=== PATIENT | male | born 1960 | race Hispanic/Latino ===

== ENCOUNTER → 2018-05-26 10:33 | Outpatient (CLI) | payer OTHER, SELFPAY | DX: Z23 Encounter for immunization (principal) ==

== ENCOUNTER 2018-08-23 21:50 | Emergency (ER) | payer OTHER, SELFPAY ==
[2018-08-23 21:54] VITALS: BP 158/86; PULSE 99; RESP 14; TEMP 36.8; O2SAT 97; BMI 28.1
--- NOTE | 2018-08-23 22:06 | ED_ITS ---
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 This happened several hours ago. Pain has been worsening since then. He has been ambulatory. Has not taken anything for this prior to arrival Related Data Allergies Allergy/AdvReac Type Severity Reaction Status Date / Time No Known Drug Allergies Allergy Verified 08/23/18 21:57 Review of Systems Constitutional Denies fever(s) Musculoskeletal Comments: Left foot pain Integumentary/Breasts Denies lesions and Denies rash Neurologic Comments: No tingling left foot Hematologic/Lymphatic Comments: Not on anticoagulation PFSH Medical History Healthy adult (Acute) Surgical History No pertinent past surgical history (Acute) Social History Smoking Status: Never smoker Exam Initial Vital Signs Initial Vital Signs: Vital Signs Temperature 98.2 F 08/23/18 21:54 Pulse Rate 99 H 08/23/18 21:54 Respiratory Rate 14 08/23/18 21:54 Blood Pressure 158/86 H 08/23/18 21:54 Pulse Oximetry 97 08/23/18 21:54 Const General: cooperative, healthy appearing, comfortable, well developed, well groomed and No acute distress Orientation: alert, awake and oriented x3 HENMT Head: normal to inspection and normocephalic Resp Effort & Inspection: normal respiratory effort Cardio Rate: regular rate Pulses: dorsalis pedis present on the left Skin Rashes: no rashes Wounds: no wounds Neuro Sensory Exam: no sensory deficits noted Extrem Other: Tender to palpation dorsum left foot medial aspect Psych Appearance: grossly normal and well kempt Course Vital Signs - 8 hr 08/23/18 21:54 Temperature 98.2 F Pulse Rate 99 H Respiratory Rate 14 Blood Pressure 158/86 H Pulse Oximetry 97 MDM - Extremity Injury (Lower) MDM Narrative Medical decision making narrative: Patient is neurovascular intact. He is ambulatory. No skin changes. Have low suspicion for fracture. Will hold on x- ray for now. Suspect contusion. Low suspicion for Lisfranc injury patient is given return precautions. He is given care instructions. He expressed understanding and agreement with plan Discharge Plan Departure Patient Disposition: Home Clinical Impression: Contusion of foot, left Instructions: DI for Contusion, How To Perform RICE (Rest, Ice, Compress, Elevate) Activity Restrictions/Additional Instructions: No limitations on your activity. Recommend that for the remainder of this evening you keep your foot elevated. He can take anti-inflammatories such as Motrin or Naprosyn. Return to the emergency department for any new or worsening symptoms
[2018-08-23] MEDS: IBUPROFEN 400 MG TABLET 800 MG PO (22:37)
== END 2018-08-23 22:44 | disposition home or self-care (01) ==
PROVIDERS: Emergency Provider Emergency Medicine
DX: S90.32XA Contusion of left foot, initial encounter (principal); Y93.E5 Activity, floor mopping and cleaning; W22.8XXA Striking against or struck by other objects, initial encounter; Y99.0 Civilian activity done for income or pay
CPT/HCPCS: 99282; 99283

== ENCOUNTER → 2019-05-31 17:51 | Outpatient (CLI) | payer OTHER, SELFPAY | DX: Z23 Encounter for immunization (principal) | CPT/HCPCS: 90471; 90686 ==

== ENCOUNTER → 2020-08-11 15:29 | Outpatient (CLI) | payer OTHER, SELFPAY ==
--- NOTE | 2020-08-11 | DI.US.S_ITS ---
PROCEDURE: US RENAL COMPLETE INDICATIONS: PROTEINURIA TECHNIQUE: Real-time scanning was performed of the kidneys and bladder, with image documentation. COMPARISON: None. FINDINGS: Kidneys: Kidneys are normal in size. Right kidney measures 10.3 cm long; left kidney measures 9.9 cm long. Right renal cortical thickness is 1.7 cm; left renal cortical thickness is 1.8 cm. Renal cortical echotexture is normal. No hydronephrosis. No suspicious solid mass lesions. Small apparent nonobstructing stones can be seen involving the left kidney. At the inferior pole of the left kidney, there is a 1.1 cm simple cyst. Bladder: Pre-void bladder volume is 102 mL. Post-void residual is 1 mL. Pre-void images demonstrate no intraluminal masses or stones. However, there is wall thickening seen of the urinary bladder, measuring up to 5 mm. On pre-void images, both ureteral jets are noted with color Doppler interrogation. (Of note, ureteral jets may not be detectable in up to 25% of cases due to insufficient differences in specific gravity between ureteral and bladder urine). Miscellaneous: No free pelvic fluid. IMPRESSION: Mild wall thickening is seen of the urinary bladder. Please correlate with cystitis. Apparent small nonobstructing stones are seen involving the left kidney. Dictated by: Ashutosh Gipson M.D. on 08/11/2020 at 15:13 Approved by: Ashutosh Gipson M.D. on 08/11/2020 at 15:15
== END ==
PROVIDERS: PCP Family Medicine; Referring Provider Family Medicine; Visit Provider Family Medicine
DX: R80.9 Proteinuria, unspecified (principal); N20.0 Calculus of kidney; N28.1 Cyst of kidney, acquired
CPT/HCPCS: 76770

== ENCOUNTER → 2020-09-12 15:54 | Outpatient (CLI) | payer OTHER, SELFPAY ==
[2020-09-12] MEDS: COVID-19 VACC(MODERNA-1)/PF 100 MCG/0.5 ML VIAL IM (16:16)
== END ==
PROVIDERS: PCP Family Medicine; Visit Provider Internal Medicine
DX: Z23 Encounter for immunization (principal)
CPT/HCPCS: 0011A; 91301

== ENCOUNTER → 2020-10-08 16:07 | Outpatient (CLI) | payer OTHER, SELFPAY ==
[2020-10-08] MEDS: COVID-19 VACC #2, MRNA(MOD) 100 MCG/0.5 ML VIAL IM (16:13)
== END ==
PROVIDERS: PCP Family Medicine; Visit Provider Internal Medicine
DX: Z23 Encounter for immunization (principal)
CPT/HCPCS: 0012A; 91301

== ENCOUNTER → 2021-06-11 | Outpatient (CLI) | payer OTHER, SELFPAY | PROVIDERS: PCP Family Medicine; Referring Provider Internal Medicine; Visit Provider Internal Medicine | DX: Z23 Encounter for immunization (principal) | CPT/HCPCS: 90471; 90686 ==

== ENCOUNTER → 2024-01-17 10:51 | Outpatient (CLI) | payer OTHER, SELFPAY | PROVIDERS: PCP Physician Assistant; Referring Provider Internal Medicine; Visit Provider Internal Medicine | DX: R06.02 Shortness of breath (principal); J98.4 Other disorders of lung | CPT/HCPCS: 94060; 94726; 94729 ==

== ENCOUNTER 2024-05-03 11:56 | Inpatient (IN) | payer OTHER, SELFPAY ==
[2024-05-03] VITALS (17 sets, daily range): BP systolic 134–158; BP diastolic 74–82; PULSE 62–74; RESP 20–35; TEMP 36.7; O2SAT 79–97; BMI 31.1
--- NOTE | 2024-05-03 12:07 | EKG_ITS ---
[address] [address] Test Date: 2024-05-03 Pat Name: Pj Miller Department: Room: Gender: Male [employer]: ANENTTE : 1960 Requested By: Order Number: [id number] Reading MD: Feliciano Keyes Measurements Intervals Penelope Rate: 67 P: 35 MI: 152 QRS: 72 QRSD: 84 T: 39 QT: 418 QTc: 441 Interpretive Statements Normal sinus rhythm Electronically Signed On 05-03-2024 15:19:20 PDT by Feliciano Keyes
--- NOTE | 2024-05-03 12:07 | ED_ITS ---
HPI - SOB/Dyspnea General Chief Complaint: Shortness of Breath/Dyspnea Stated Complaint: per pt low oxygen Time Seen by Provider: 05/03/24 12:00 Source: patient Mode of arrival: Ambulatory Limitations: no limitations History of Present Illness HPI Narrative: 63-year-old male with history of hypertension, gout, diabetes presents by private vehicle for shortness of breath, central chest pain, and low reported oxygen saturations on room air at his PCP's office. Patient states that in September of 2023 he had pneumonia, and never truly recovered. He has seen pulmonology for his shortness of breath, he was trialed on nebulizers without significant improvement. Patient states that 2 months ago he was hospitalized at [facility] and underwent coronary angiogram, which showed 70% stenosis of one of his coronaries, however cardiology opted for medical management at that time. Patient found to be 79% on room air and placed on nasal cannula. Related Data Home Medications Medication Instructions Recorded Confirmed albuterol sulfate 90 mcg/actuation 2 inh inhalation Q4H PRN 11/29/23 01/17/24 breath activated powder inhaler allopurinol 300 mg tablet 300 mg PO DAILY 11/29/23 01/17/24 amlodipine 10 mg tablet 10 mg PO DAILY 11/29/23 01/17/24 atenolol 50 mg tablet 50 mg PO DAILY 11/29/23 01/17/24 carvedilol 12.5 mg tablet 12.5 mg PO BID 11/29/23 01/17/24 losartan 100 mg tablet 100 mg PO DAILY 11/29/23 01/17/24 metformin 1,000 mg tablet 1,000 mg PO BIDWMEAL 11/29/23 01/17/24 simvastatin 20 mg tablet 20 mg PO DAILY 11/29/23 01/17/24 tamsulosin 0.4 mg capsule 0.4 mg PO DAILY 11/29/23 01/17/24 Previous Rx's Medication Instructions Recorded fluticasone 250 mcg-salmeterol 50 1 inh inhalation BID #60 ea 03/22/24 mcg/dose blistr powdr for inhalation Allergies Allergy/AdvReac Type Severity Reaction Status Date / Time No Known Drug Allergies Allergy Verified 05/03/24 12:04 Patient History Medical History (Updated 05/03/24 @ 14:37 by Muriel Dodson MD) Obstructive airway disease HLD (hyperlipidemia) HTN (hypertension) Coronary artery disease Healthy adult Surgical History No pertinent past surgical history Social History Smoking Status: Never smoker Smoking Status: Never smoker alcohol intake frequency: holidays/special occasions only Substance Use Type: does not use Exam Initial Vital Signs Initial Vital Signs: Vital Signs Temperature 98.0 F 05/03/24 11:58 Pulse Rate 70 05/03/24 11:58 Respiratory Rate 26 H 05/03/24 11:58 Blood Pressure 158/76 H 05/03/24 11:58 Pulse Oximetry 79 L 05/03/24 11:58 Oxygen Delivery Method Room Air 05/03/24 11:58 Const: Awake, alert, nontoxic appearing Cardiac: regular rate, regular rhythm RESP: unlabored, crackles LLL, no wheezing GI: Soft, nontender, nondistended, no rebound, no guarding MSK: no edema, full range of motion, pulses equal Skin: Warm, Dry, intact, no rashes Neuro: AO x3, CN II-XII grossly intact, moves all extremities Course Orders Ordered: ED Orders 05/03/24 12:05 Chest [XR chest 1V] Stat EKG-12 Lead Stat 05/03/24 12:09 BNP [NT-proBNP (BNP-Adult 18+)] Stat CBC Auto Diff [Complete Blood Count AUTO DIFF] Stat CMP [Comprehensive Metabolic Panel] Stat PT [Prothrombin Time INR] Stat Respiratory Panel (Film Array) Stat Troponin & CK Cardiac Panel Stat 05/03/24 12:29 Blood Culture Stat Discontinued Medications Furosemide (Furosemide 40 Mg/4 Ml Vial) 40 mg IV NOW ONE Stop: 05/03/24 14:03 Last Admin: 05/03/24 14:20 Dose: 40 mg Ceftriaxone Sodium 2,000 mg/ (Sodium Chloride) 100 mls @ 200 mls/hr IV NOW ONE Stop: 05/03/24 12:21 Last Infusion: 05/03/24 13:20 Dose: Infused Documented By: Admin: 05/03/24 12:41 Dose: 200 mls/hr Documented By: RAMÓN Azithromycin 500 mg/ Dextrose 250 mls @ 250 mls/hr IV NOW ONE Stop: 05/03/24 12:21 Last Admin: 05/03/24 13:20 Dose: 250 mls/hr Documented By: BENI Sodium Chloride (Normal Saline 0.9%) 1,000 mls @ 1,000 mls/hr IV BOLUS ONE Stop: 05/03/24 13:24 Last Infusion: 05/03/24 13:49 Dose: Infused Documented By: Admin: 05/03/24 12:41 Dose: 1,000 mls/hr Documented By: RAMÓN Vital Signs Vital signs: Vital Signs - 8 hr 05/03/24 11:58 05/03/24 12:03 05/03/24 12:15 Temperature 98.0 F Pulse Rate 70 74 67 Respiratory Rate 26 H 30 H 29 H Blood Pressure 158/76 H Pulse Oximetry 79 L 87 L 93 Oxygen Delivery Method Room Air Nasal Cannula Oxygen Flow Rate 3 05/03/24 12:30 05/03/24 12:30 05/03/24 12:45 Temperature Pulse Rate 66 66 Respiratory Rate 24 30 H Blood Pressure 139/74 Pulse Oximetry 94 95 Oxygen Delivery Method Nasal Cannula Nasal Cannula Oxygen Flow Rate 3 3 05/03/24 13:00 05/03/24 13:00 05/03/24 13:15 Temperature Pulse Rate 64 66 Respiratory Rate 30 H 35 H Blood Pressure 144/77 H Pulse Oximetry 93 94 Oxygen Delivery Method Nasal Cannula Nasal Cannula Oxygen Flow Rate 3 3 05/03/24 13:30 05/03/24 13:30 05/03/24 13:45 Temperature Pulse Rate 65 67 Respiratory Rate 24 29 H Blood Pressure 146/76 H Pulse Oximetry 91 91 Oxygen Delivery Method Nasal Cannula Nasal Cannula Oxygen Flow Rate 3 3 MDM - SOB/Dyspnea Lab Data 05/03/24 12:09 05/03/24 12:09 Labs: Lab Results 05/03/24 Range/Units 12:09 WBC 6.4 (4.5-11.0) X10^3/uL RBC 5.98 H (4.5-5.9) X10^6/uL Hgb 12.9 L (13.5-17.5) g/dL Hct 42.1 (41-53) % MCV 70.5 L (80-100) fL MCH 21.5 L (26-34) PG MCHC 30.6 (30-36) % RDW 18.6 H (11.6-14.8) % Plt Count 249 (150-400) X10^3/uL Neut % (Auto) 73.1 (50-75) % Lymph % (Auto) 16.8 L (25-40) % Ogle % (Auto) 6.0 (3-14) % Eos % (Auto) 3.4 (2-4) % Baso % (Auto) 0.7 (0-2) % Neut # (Auto) 4700 (8527-4412) /uL Lymph # (Auto) 1100 (2205-6258) /uL Ogle # (Auto) 400 (0-900) /uL Eos # (Auto) 200 (0-450) /uL Baso # (Auto) 0 (0-100) /uL PT 9.8 (9.4-12.5) SECONDS INR 0.9 (0.9-1.3) Sodium 141 (137-145) mmol/L Potassium 4.7 (3.4-5.1) mmol/L Chloride 112 H (98-107) mmol/L Carbon Dioxide 19 L (22-32) mmol/L BUN 38 H (9-20) mg/dL Creatinine 2.22 H (0.66-1.25) mg/dL Estimated GFR 32 L (>60) mL/min BUN/Creatinine Ratio 17.1 (6-22) Glucose 112 H (80-110) mg/dL Calcium 8.8 (8.4-10.2) mg/dL Total Bilirubin 0.6 (0.2-1.3) mg/dL AST 25 (17-59) IU/L ALT 21 (<50) IU/L Alkaline Phosphatase 69 (38-126) U/L Total Creatine Kinase 138 (55-170) U/L Troponin I < 0.012 (0.01-0.034) ng/mL NT-Pro-B Natriuret Pep 290 H (<125) pg/mL Total Protein 7.3 (6.3-8.2) g/dL Albumin 4.3 (3.5-5.0) g/dL Globulin 3.0 (1.7-4.1) g/dL Albumin/Globulin Ratio 1.4 (1.0-2.8) Chlamy pneumoniae PCR Not detected (Not Detect) Adenovirus (PCR) Not detected (Not Detect) B.parapertussis DNA PCR Not detected (Not Detecte) Coronavirus OC43 (PCR) Not detected (Not Detect) Coronavirus HKU1 (PCR) Not detected (Not Detect) Coronavirus 229E (PCR) Not detected (Not Detect) SARS-CoV-2 (PCR) Not detected (Not Detecte) Coronavirus NL63 (PCR) Not detected (Not Detect) Human Metapneumovir PCR Not detected (Not Detect) Influenza Type A (PCR) Not detected (Not Detect) Influenza Type B (PCR) Not detected (Not Detect) M. pneumoniae (PCR) Not detected (Not Detect) Parainfluenza 1 (PCR) Not detected (Not Detect) Parainfluenza 2 (PCR) Not detected (Not Detect) Parainfluenza 3 (PCR) Not detected (Not Detect) Parainfluenza 4 (PCR) Not detected (Not Detect) RSV (PCR) Not detected (Not Detect) Entero/Rhino (PCR) Not detected (Not Detect) Imaging Data Chest x-ray: Radiologist's Impression: PROCEDURE: XR CHEST 1V INDICATIONS: DYSPNEA, HYPOXIA TECHNIQUE: One view of the chest was acquired. COMPARISON: [facility], , CT THORAX W/O CONTRAST, 12/15/2023, 11:02. FINDINGS: Surgical changes and devices: None. Lungs and pleura: Trace bilateral pleural effusions. Patchy opacities in the right lung base. Mediastinum: Mediastinal contours appear normal. Heart size is normal. Bones and chest wall: No suspicious bony lesions. Overlying soft tissues appear unremarkable. IMPRESSION: Trace bilateral pleural effusions. Right basilar atelectasis or pneumonia. Dictated by: Gin Rodrigues MD, PhD on 05/03/2024 at 12:36 Approved by: Gin Rodrigues MD, PhD on 05/03/2024 at 12:37 ECG Data Interpretation: Normal sinus rhythm at 67 beats per minute. Normal RI, no ST T wave changes, no STEMI MDM Narrative Medical decision making narrative: Nontoxic patient with hypoxia, chest pain, shortness of breath. 79% on RA, patient does not wear O2 at baseline. Placed on NC on arrival. Suspect pneumonia based on pulmonary exam. Blood cultures ordered, chest x-ray ordered. Patient reports recent hospitalization at [facility] for coronary disease evaluation. He states that his heart catheterization showed no significant blockages, however review of records shows 70% stenosis. Laboratory work shows WBC count 6.4, hemoglobin 12.9, platelets 249, sodium 141, potassium 4.7, creatinine 2.22, GFR 32. 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 CXR shows R sided pneumonia. Rocephin, azithromycin ordered. Discussed case with hospitalist, who requested Cardiology be consulted to see if transfer is indicated due to patient's chest pain. Discussed case with Dr. Bell of [facility], who stated that at this time there was no indication for emergent transfer and patient could be managed medically with diuresis. Discharge Plan Departure Patient Disposition: Admitted as Observation Clinical Impression: Acute hypoxemic respiratory failure Admit Date/Time: 05/03/24 14:20 Admit Provider: Feliciano Keyes
[2024-05-03 12:20] LABS: Add Manual Diff / Slide Review NO; Basophils Absolute Auto 0 /uL (0-100); Basophils Percent Auto 0.7 % (0-2); Eosinophils Absolute Auto 200 /uL (0-450); Eosinophils Percent Auto 3.4 % (2-4); Hematocrit 42.1 % (41-53); Hemoglobin 12.9 g/dL (13.5-17.5); Lymphocytes Absolute Auto 1100 /uL (1100-4500); Lymphocytes Percent Auto 16.8 % (25-40); Mean Corpuscular HGB Conc 30.6 % (30-36); Mean Corpuscular Hemoglobin 21.5 PG (26-34); Mean Corpuscular Volume 70.5 fL (80-100); Monocytes Absolute Auto 400 /uL (0-900); Neutrophils Absolute Auto 4700 /uL (1500-7000); Neutrophils Percent Auto 73.1 % (50-75); Platelet Count 249 X10^3/uL (150-400); Red Blood Cell Count 5.98 X10^6/uL (4.5-5.9); Red Cell Distribution Width 18.6 % (11.6-14.8); White Blood Cell Count 6.4 X10^3/uL (4.5-11.0)
[2024-05-03 12:27] LABS: INR 0.9 (0.9-1.3); Prothrombin Time 9.8 SECONDS (9.4-12.5)
[2024-05-03 12:35] LABS: Alanine Aminotransferase 21 IU/L (<50); Albumin 4.3 g/dL (3.5-5.0); Albumin Globulin Ratio 1.4 (1.0-2.8); Alkaline Phosphatase 69 U/L (38-126); Aspartate Aminotransferase 25 IU/L (17-59); BUN Creatinine Ratio 17.1 (6-22); Bilirubin Total 0.6 mg/dL (0.2-1.3); Blood Urea Nitrogen 38 mg/dL (9-20); Calcium 8.8 mg/dL (8.4-10.2); Carbon Dioxide 19 mmol/L (22-32); Chloride 112 mmol/L (98-107); Creatine Kinase 138 U/L (55-170); Estimated Glomerular Filt Rate 32 mL/min (>60); Glucose 112 mg/dL (80-110); HEMOLYSIS < 15 (0-50); Potassium 4.7 mmol/L (3.4-5.1); Sodium 141 mmol/L (137-145); Total Protein 7.3 g/dL (6.3-8.2)
[2024-05-03] MEDS: cefTRIAXone 2,000 MG in SODIUM CHLORIDE 0.9% 100 ML 200 MG IV (12:41)
[2024-05-03] MEDS: SODIUM CHLORIDE 0.9% 1,000 ML 1000 ML IV (12:41)
[2024-05-03 12:48] LABS: NT-proBNP (BNP-Adult 18+) 290 pg/mL (<125); Troponin I < 0.012 ng/mL (0.01-0.034)
[2024-05-03 13:08] LABS: Adenovirus Not Detected (Not Detect); B. parapertussis Not Detected (Not Detecte); Bordetella pertussis Not Detected (Not Detect); Chlamydophila pneumoniae Not Detected (Not Detect); Coronavirus 229E Not Detected (Not Detect); Coronavirus HKU1 Not Detected (Not Detect); Coronavirus NL 63 Not Detected (Not Detect); Coronavirus OC43 Not Detected (Not Detect); Human Metapneumovirus Not Detected (Not Detect); Human Rhinovirus/Enterovirus Not Detected (Not Detect); Influenza A Not Detected (Not Detect); Influenza B Not Detected (Not Detect); Mycoplasma pneumoniae Not Detected (Not Detect); Parainfluenza Virus 1 Not Detected (Not Detect); Parainfluenza Virus 2 Not Detected (Not Detect); Parainfluenza Virus 3 Not Detected (Not Detect); Parainfluenza Virus 4 Not Detected (Not Detect); Respiratory Syncytial Virus Not Detected (Not Detect); SARS- CoV-2 Not Detected (Not Detecte)
[2024-05-03] MEDS: AZITHROMYCIN 500 MG in DEXTROSE 5% IN WATER 250 ML 250 MG IV (13:20)
--- NOTE | 2024-05-03 14:05 | P.CALLCOV_ITS ---
Call Coverage Note Note Date of Patient Contact: 05/03/24 Narrative of Care Provided: 63 M with PMH of CAD (70% LAD from 02/26 [facility]) who presents with worsening shortness of breath. This was severe starting last night. He also has LE edema worsening over the past week. He also continues to have substernal chest pressure with ambulation despite medical therapy. Previous notes from cardiology state that patient will likely need stenting at some point given his 70% LAD lesion and he was attempted on imdur and metoprolol therapy. He denies fever, chills. No real change in his cough recently (has been chronic since his reported dx of pneumonia many months ago). Given clinical scenario, recommend transfer to center with cardiology (and possibly nephrology given his CRYSTAL as well) at this time for further evaluation for presumed heart failure, likely ischemic, with possible need for LHC. For now would diurese, monitor renal function closely given CRYSTAL.
--- NOTE | 2024-05-03 14:13 | PC.NURSE ---
Pt 87% on 3L. Resting in bed. increased to 4L and improvement to 94%. Order for 40mg lasix, given. urinal at bedside.
[2024-05-03] MEDS: FUROSEMIDE 40 MG/4 ML VIAL IV ×2 (14:20→20:46)
--- NOTE | 2024-05-03 14:21 | PM.HP.1 ---
History of Present Illness History of Present Illness Date Patient Seen: 05/03/24 Time Patient Seen: 14:21 Chief complaint: per pt low oxygen Narrative: 63 M with PMH of CAD (70% LAD from 02/26 [facility]), HTN, HLD, possible obstructive lung disease (see pulmonary notes), gout, DM who presents with worsening shortness of breath. This was severe starting last night. He also has LE edema worsening over the past week. He also continues to have substernal chest pressure with ambulation despite medical therapy. Previous notes from cardiology state that patient will likely need stenting at some point given his 70% LAD lesion and he was attempted on imdur and metoprolol therapy. He denies fever, chills. No real change in his cough recently (has been chronic since his reported dx of pneumonia many months ago). Given clinical scenario, recommended transfer to center with cardiology (and possibly nephrology given his CRYSTAL as well) at this time for further evaluation for presumed heart failure, likely ischemic, with possible need for LHC. However patient's cardiology group via [facility] recommended continued medical therapy only, no interventions or transfer needed. He was admitted here for presumed heart failure exacerbation with plan for diuresis. [facility] Medical History (Updated 05/03/24 @ 14:37 by Muriel Dodson MD) Obstructive airway disease HLD (hyperlipidemia) HTN (hypertension) Coronary artery disease Healthy adult Surgical History No pertinent past surgical history Social History household members: spouse and children Smoking Status: Never smoker alcohol intake: current Meds Home Medications and Allergies Home Medications Medication Instructions Recorded Confirmed Type albuterol sulfate 90 mcg/actuation 2 inh inhalation Q4H PRN SOB 11/29/23 05/03/24 History breath activated powder inhaler allopurinol 300 mg tablet 300 mg PO DAILY 11/29/23 05/03/24 History amlodipine 10 mg tablet 10 mg PO DAILY 11/29/23 05/03/24 History atenolol 50 mg tablet 50 mg PO DAILY 11/29/23 05/03/24 History losartan 100 mg tablet 100 mg PO DAILY 11/29/23 05/03/24 History metformin 1,000 mg tablet 1,000 mg PO BIDWMEAL 11/29/23 05/03/24 History simvastatin 20 mg tablet 20 mg PO DAILY 11/29/23 05/03/24 History tamsulosin 0.4 mg capsule 0.4 mg PO DAILY 11/29/23 05/03/24 History fluticasone 250 mcg-salmeterol 50 1 inh inhalation BID #60 ea 03/22/24 05/03/24 Rx mcg/dose blistr powdr for inhalation aspirin 81 mg tablet,delayed 81 mg PO DAILY 05/03/24 05/03/24 History release isosorbide mononitrate 120 mg 120 mg PO DAILY 05/03/24 05/03/24 History tablet,extended release 24 hr Allergies Allergy/AdvReac Type Severity Reaction Status Date / Time No Known Drug Allergies Allergy Verified 05/03/24 12:04 Review of Systems Review of Systems Narrative: All other systems reviewed with the patient and are negative unless otherwise stated. Exam Vital Signs (past 8 hours): - 05/03/24 11:58 05/03/24 12:03 05/03/24 12:15 Temperature 98.0 F Pulse Rate 70 74 67 Respiratory Rate 26 H 30 H 29 H Blood Pressure 158/76 H Pulse Oximetry 79 L 87 L 93 Oxygen Delivery Method Room Air Nasal Cannula Oxygen Flow Rate 3 05/03/24 12:30 05/03/24 12:30 05/03/24 12:45 Temperature Pulse Rate 66 66 Respiratory Rate 24 30 H Blood Pressure 139/74 Pulse Oximetry 94 95 Oxygen Delivery Method Nasal Cannula Nasal Cannula Oxygen Flow Rate 3 3 05/03/24 13:00 05/03/24 13:00 05/03/24 13:15 Temperature Pulse Rate 64 66 Respiratory Rate 30 H 35 H Blood Pressure 144/77 H Pulse Oximetry 93 94 Oxygen Delivery Method Nasal Cannula Nasal Cannula Oxygen Flow Rate 3 3 05/03/24 13:30 05/03/24 13:30 05/03/24 13:45 Temperature Pulse Rate 65 67 Respiratory Rate 24 29 H Blood Pressure 146/76 H Pulse Oximetry 91 91 Oxygen Delivery Method Nasal Cannula Nasal Cannula Oxygen Flow Rate 3 3 Oxygen Delivery Method Nasal Cannula Oxygen Flow Rate 3 Narrative Exam Narrative: General:? Patient is well developed and well nourished, in no distress at this time. HEENT:? Normocephalic, atraumatic, extraocular muscles intact, oral pharynx is clear and mucous membranes are moist. Neck: supple and symmetric, trachea is midline, no cervical adenopathy. Chest:? Normal AP diameter and contour without kyphoscoliosis, no tachypnea, equal chest rise bilaterally. Lungs:? bibasilar rhales, no wheezing. Cardio:?RRR no m/r/g. Abdomen: S NT ND. Musculoskeletal:? Muscle strength and tone are equal within normal limits, no deformity. Extremities: 1-2 + pitting edema b/l LE extremities. Skin:? Pale,? Warm to touch,dry and intact without rashes, ulcerations or petechiae.? Neuro:? Alert and orientated x3,? sensation to touch intact in all extremities, no gross deficits noted of cranial nerves. Psych:? Patient has a well-kept appearance, appropriate affect, mental status attitude thought context and judgment are appropriate for age. Objective ECG Impression: NSR, no acute ischemia. Labs 05/03/24 12:09 05/03/24 12:09 Labs: Laboratory Results - last 24 hr 05/03/24 12:09 WBC 6.4 RBC 5.98 H Hgb 12.9 L Hct 42.1 MCV 70.5 L MCH 21.5 L MCHC 30.6 RDW 18.6 H Plt Count 249 Neut % (Auto) 73.1 Lymph % (Auto) 16.8 L [place] % (Auto) 6.0 Eos % (Auto) 3.4 Baso % (Auto) 0.7 Neut # (Auto) 4700 Lymph # (Auto) 1100 [place] # (Auto) 400 Eos # (Auto) 200 Baso # (Auto) 0 PT 9.8 INR 0.9 Sodium 141 Potassium 4.7 Chloride 112 H Carbon Dioxide 19 L BUN 38 H Creatinine 2.22 H Estimated GFR 32 L BUN/Creatinine Ratio 17.1 Glucose 112 H Calcium 8.8 Total Bilirubin 0.6 AST 25 ALT 21 Alkaline Phosphatase 69 Total Creatine Kinase 138 Troponin I < 0.012 NT-Pro-B Natriuret Pep 290 H Total Protein 7.3 Albumin 4.3 Globulin 3.0 Albumin/Globulin Ratio 1.4 Chlamy pneumoniae PCR Not detected Adenovirus (PCR) Not detected B.parapertussis DNA PCR Not detected Coronavirus OC43 (PCR) Not detected Coronavirus HKU1 (PCR) Not detected Coronavirus 229E (PCR) Not detected SARS-CoV-2 (PCR) Not detected Coronavirus NL63 (PCR) Not detected Human Metapneumovir PCR Not detected Influenza Type A (PCR) Not detected Influenza Type B (PCR) Not detected M. pneumoniae (PCR) Not detected Parainfluenza 1 (PCR) Not detected Parainfluenza 2 (PCR) Not detected Parainfluenza 3 (PCR) Not detected Parainfluenza 4 (PCR) Not detected RSV (PCR) Not detected Entero/Rhino (PCR) Not detected Assessment & Plan Assessment & Plan narrative: 1. Acute respiratory failure with hypoxia, secondary to acute on chronic heart failure of unknown type - continue diuresis with furosemide 40 mg IV BID - wean O2 as tolerated, Goal O2 88-96% on room air with hx of obstructive lung disease. - check 2nd troponin to rule out an atypical ACS presentation. - echocardiogram ordered to assess EF - RT evaluation and treatment ordered - per cardiology notes from OSH, was to start metoprolol instead of atenolol, will change here to metoprolol. ER called an no transfer recommended at this time, continue medical management only. Monitor closely for signs of ongoing ischemia with known 70% lesion that cath report states is likely to need intervention at some point. - patient was given antibiotics in the ER, low concern for pneumonia at this time. Normal WBC count, no fevers or chills or no change in cough. 2. chronic obstructive lung disease without exacerbation. - chronic, no wheezing, presentation more consistent with heart failure - continue home medications, replacing inhalers for formulary nebulizers. - no change in cough or sputum production, no evidence of exacerbation. 3. CRYSTAL on CKD (unknown baseline) - likely due to volume overload, but monitor closely in setting of diuresis above. - reported baseline Cr around 1.8, dose medications appropriately for renal function. 4. HTN - continue home metoprolol 5. CAD - continue beta marko, imdur, asa and statin therapy. 6. DM2 - hold metformin - low dose sliding scale and fingersticks ACHS. - A1c ordered for tomorrow. Code: Full, surrogate is patient's spouse DVT: Lovenox daily I have utilized all available immediate resources to obtain, update, or review the patient's current medications. Dispo: patient admitted under observation status. Likely discharge home, consider PT/OT depending on progress with diuresis. Additional history obtained via discussions with the ER provider, review of outside records including recent [facility] admission at [facility]. These discussions and review contributed to the creation of the above assessment and plan. I have reviewed patient's presenting documentation, labs, and imaging personally. Time-Based Coding :: [TOTAL MINUTES] spent with patient and on the chart (including review of chart, obtaining history, exam, reviewing outside data, placing orders, documenting exam and treatment plan, and counseling patient) on [DATE].
--- NOTE | 2024-05-03 14:26 | DI.ECHO.S_ITS ---
[facility] : : [address] : : [place] : : [id number] : : Phone: [phone] Echocardiogram Report + + :Name: KITTY LUEVANO Study Date: 05/04/2024 Height: 66 in : :[facility] ReadingLocation: Weight: 193 lb : : Gender: Male BSA: 2.0 m2 : :: 1960 Age: 63 yrs BP: 165/84 mmHg: :Reason For Study: SHORTNESS OF BREATH : :Ordering Physician: TAWANDA, : :ANDREA MEDINA Performed By: Odette Preston : :Referring: ANDREA NEFF : + + Interpretation Summary 1. The left ventricular contractility is normal. Estimated ejection fraction is 55 to 60% with no segmental wall motion abnormalities. No LVH. Grade 1 diastolic dysfunction. 2. The right ventricular contractility is normal. 3. All cardiac chambers are of normal size. 4. No significant valvular abnormalities. 5. No obvious extractions. 6. No obvious intracardiac masses nor thrombi. 7. No hemodynamically significant pericardial effusion. 8. Low right-sided filling pressures. Conclusion: Normal biventricular systolic function with no significant valvular abnormalities. Procedure: A two-dimensional transthoracic echocardiogram with color flow and Doppler was performed. The study quality was technically adequate. There is no prior echocardiogram noted for this patient. The patient was in sinus bradycardia with heart rates between 60-69 bpm during the exam. Left Ventricle: The left ventricle is normal in size and wall thickness. The ejection fraction is estimated to be 55-60%. Right Ventricle: The right ventricle is normal in size and function. Atria: The left atrial size is normal. Right atrial size is normal. There is no Doppler evidence for an interatrial shunt. Mitral Valve: The mitral valve is normal in structure and function. There is mild mitral annular calcification. There is no mitral regurgitation noted. Aortic Valve: The aortic valve is trileaflet. The aortic valve opens well. There is no aortic valve stenosis. No aortic regurgitation is present. Tricuspid Valve: The tricuspid valve is normal in structure and function. There is trace tricuspid regurgitation. Pulmonic Valve: The pulmonic valve leaflets are thin and pliable; valve motion is normal. There is no pulmonic valvular regurgitation. Great Vessels: The aortic root is normal size. The dimensions of the ascending aorta are normal. The IVC is of normal diameter and collapses greater than 50% with a sniff. This suggests a low right atrial pressure of 3 mm Hg. Pericardium/ Pleura There is no pericardial effusion. There is no pleural effusion. MMode/2D Measurements & Calculations LVIDd: 5.3 cm LVOT diam: 2.0 cm LVIDs: 3.7 cm Ao root diam: 3.7 cm FS: 29.9 % asc Aorta Diam: 3.3 cm EPSS: 1.1 cm Ao Arch Diam (Prox Trans): 2.1 cm IVSd: 1.0 cm LVPWd: 0.97 cm LV helms. diameter/BSA (cm/m^2): 2.7 LV sys. diameter/BSA (cm/m^2): 1.9 LA A2 area: 20.5 cm2 RA long axis: 5.1 cm LA A4 area: 18.7 cm2 RA area: 15.2 cm2 LA length (vol): 5.4 cm RA vol: 38.8 ml LA vol: 60.7 ml RA : 19.7 ml/m2 LA vol index: 30.8 ml/m2 IVC diam: 1.8 cm RVD1 (basal): 3.5 cm RVD2 (mid): 3.1 cm TAPSE: 1.8 cm Doppler Measurements & Calculations Ao V2 max: 125.3 cm/sec LVOT Max Jez: 93.8 cm/sec Ao V2 mean: 91.3 cm/sec LV V1 max P.5 mmHg Ao max P.3 mmHg LV V1 VTI: 20.8 cm Ao mean P.7 mmHg TRENT(I,D): 2.3 cm2 Ao V2 VTI: 30.2 cm TRENT(V,D): 2.5 cm2 sev ratio: 0.69 TRENT indexed to BSA (cm^2/m^2): 1.1 MV E max jez: 87.6 cm/sec PA V2 max: 89.7 cm/sec MV A max jez: 88.4 cm/sec PA V2 mean: 60.9 cm/sec MV E/A: 0.99 PA mean P.6 mmHg Med Peak E' Jez: 6.7 cm/sec PA pr(Accel): 46.5 mmHg E/E' med: 13.1 Lat Peak E' Jez: 8.9 cm/sec E/E' lat: 9.9 E/e' average: 11.5 MV dec time: 0.17 sec SV(LVOT): 68.4 ml Reading Physician:
[2024-05-03 17:49] LABS: Troponin I < 0.012 ng/mL (0.01-0.034)
[2024-05-03] MEDS: BUDESONIDE 0.5 MG/2 ML NEB INH (19:09)
[2024-05-03] MEDS: ALBUTEROL 2.5 MG/3 ML NEB (ADULT) INH (19:09)
[2024-05-03] MEDS: ATORVASTATIN 20 MG TABLET 10 MG PO (20:46)
[2024-05-03] MEDS: METOPROLOL ER 50 MG TABLET PO (20:48)
[2024-05-04] VITALS (9 sets, daily range): BP systolic 104–165; BP diastolic 58–98; PULSE 63–82; RESP 18–22; TEMP 35.8–36.2; O2SAT 90–98
--- NOTE | 2024-05-04 01:30 | PC.NURSE ---
Tele placed at 20:14.
[2024-05-04 06:38] LABS: Add Manual Diff / Slide Review NO; Basophils Absolute Auto 100 /uL (0-100); Basophils Percent Auto 0.7 % (0-2); Eosinophils Absolute Auto 300 /uL (0-450); Eosinophils Percent Auto 3.4 % (2-4); Hematocrit 42.3 % (41-53); Lymphocytes Absolute Auto 1600 /uL (1100-4500); Lymphocytes Percent Auto 20.7 % (25-40); Mean Corpuscular HGB Conc 30.7 % (30-36); Mean Corpuscular Hemoglobin 21.5 PG (26-34); Monocytes Absolute Auto 400 /uL (0-900); Monocytes Percent Auto 5.6 % (3-14); Neutrophils Absolute Auto 5400 /uL (1500-7000); Neutrophils Percent Auto 69.6 % (50-75); Platelet Count 239 X10^3/uL (150-400); Red Blood Cell Count 6.04 X10^6/uL (4.5-5.9); Red Cell Distribution Width 18.2 % (11.6-14.8); White Blood Cell Count 7.7 X10^3/uL (4.5-11.0)
[2024-05-04 06:46] LABS: Alanine Aminotransferase 19 IU/L (<50); Albumin 3.9 g/dL (3.5-5.0); Albumin Globulin Ratio 1.2 (1.0-2.8); Alkaline Phosphatase 66 U/L (38-126); Aspartate Aminotransferase 23 IU/L (17-59); BUN Creatinine Ratio 18.8 (6-22); Bilirubin Total 0.6 mg/dL (0.2-1.3); Blood Urea Nitrogen 36 mg/dL (9-20); Calcium 8.7 mg/dL (8.4-10.2); Carbon Dioxide 28 mmol/L (22-32); Chloride 105 mmol/L (98-107); Estimated Glomerular Filt Rate 39 mL/min (>60); Globulin 3.3 g/dL (1.7-4.1); Glucose 93 mg/dL (80-110); HEMOLYSIS < 15 (0-50); Magnesium 2.2 mg/dL (1.6-2.3); Potassium 3.9 mmol/L (3.4-5.1); Sodium 139 mmol/L (137-145); Total Protein 7.2 g/dL (6.3-8.2)
[2024-05-04] MEDS: METOPROLOL ER 50 MG TABLET PO ×2 (08:27→20:13)
[2024-05-04] MEDS: AMLODIPINE 5 MG TABLET 10 MG PO (08:27)
[2024-05-04] MEDS: ASPIRIN EC 81 MG TABLET PO (08:28)
[2024-05-04] MEDS: LOSARTAN 50 MG TABLET 100 MG PO (08:28)
[2024-05-04] MEDS: allopurinoL 100 MG TABLET 200 MG PO (08:28)
[2024-05-04] MEDS: ENOXAPARIN 30 MG/0.3 ML SYRINGE SUBCUT (08:28)
[2024-05-04] MEDS: ISOSORBIDE MONONITRATE ER 30 MG TABLET 120 MG PO (08:42)
[2024-05-04] MEDS: TAMSULOSIN 0.4 MG CAPSULE PO (08:42)
[2024-05-04] MEDS: FUROSEMIDE 40 MG/4 ML VIAL IV ×2 (09:16→20:13)
[2024-05-04] MEDS: ALBUTEROL 2.5 MG/3 ML NEB (ADULT) INH ×3 (09:42→20:01)
[2024-05-04] MEDS: BUDESONIDE 0.5 MG/2 ML NEB INH ×2 (09:42→20:01)
--- NOTE | 2024-05-04 10:19 | CM.DANOTE ---
Initial DCP Assessment Note Pt is a 63 yo male, resident of [place], arrived with low oxygen level, admitted for further work up and management of CHF, patient getting diuresed today, currently on 3L O2. PCP: Gina Thakur Payer: Francisco MUNOZ Reviewed chart, pt discussed in multidisciplinary rounds this morning. Home anticipated once patient can be weaned off O2. Met w/patient and his SO, introduced self and role. Patient lives independently with SO and their child(jose manuel) uses no DME. Patient anticipates returning home w/family and is currently denying needs from this CM team. No barriers identified at this time to patient's safe discharge home w/family to assist; close outpatient f/u recommended. CM team will plan to follow clinical course closely in case any DC needs or concerns arise. EBER Sykes Discharge Planning/Care Management CM Discharge Assessment Start: 05/04/24 10:17 Freq: Status: Active Protocol: Document 05/04/24 10:17 CARLOS (Rec: 05/04/24 10:19 CARLOS [id number]) Discharge Planning Assessment Assigned Photogrammetric Compilation Specialist EBER Hinds DPOA/Assigned Designee Name Priti MalcolmTIFFANIE Contact Information [phone] Advance Directives? No History Provided By Patient,Significant Other, Medical Record Prior Living Arrangements Other Comment [place] in [place] Household Members spouse,children Type of transporation used prior to Drives own vehicle admit Independent with ADL's Yes Is patient alert and oriented? Yes Barriers to Discharge No Discharge Plan Home Transportation Arrangement Family Referrals Initiated None needed
[2024-05-04] MEDS: INSULIN LISPRO 100 UNIT/ML 3ML VIAL SUBCUT (13:04)
--- NOTE | 2024-05-04 13:51 | P.PN_ITS ---
Subjective Subjective Interval history: 63 M admitted with CHF. Improved O2 requirements today, diuresing well. No fever, chills, or chest pain. Exam Vital Signs (past 8 hours): - 05/04/24 06:00 05/04/24 07:40 05/04/24 09:42 Temperature Pulse Rate 79 64 Respiratory Rate 19 20 Blood Pressure 165/84 H Pulse Oximetry 98 94 Oxygen Delivery Method Room Air Nasal Cannula Oxygen Flow Rate 3 05/04/24 10:00 Temperature 96.4 F L Pulse Rate 63 Respiratory Rate 22 Blood Pressure 150/80 H Pulse Oximetry 96 Oxygen Delivery Method Oxygen Flow Rate 3 Fraction of Inspired Oxygen 36 SaO2/FiO2 Ratio 255 Oxygen Delivery Method Nasal Cannula Oxygen Flow Rate 3 Narrative Exam Narrative: General:? Patient is well developed and well nourished, in no distress at this time. HEENT:? Normocephalic, atraumatic, extraocular muscles intact, oral pharynx is clear and mucous membranes are moist. Neck: supple and symmetric, trachea is midline, no cervical adenopathy. Chest:? Normal AP diameter and contour without kyphoscoliosis, no tachypnea, equal chest rise bilaterally. Lungs:? bibasilar rhales, no wheezing. Cardio:?RRR no m/r/g. Abdomen: S NT ND. Musculoskeletal:? Muscle strength and tone are equal within normal limits, no deformity. Extremities: trace to 1+ pitting edema b/l LE extremities. Skin:? Pale,? Warm to touch,dry and intact without rashes, ulcerations or petechiae.? Neuro:? Alert and orientated x3,? sensation to touch intact in all extremities, no gross deficits noted of cranial nerves. Psych:? Patient has a well-kept appearance, appropriate affect, mental status attitude thought context and judgment are appropriate for age. Objective Labs 05/04/24 06:20 05/04/24 06:20 Labs: Laboratory Results - last 24 hr 05/03/24 05/04/24 17:12 06:20 WBC 7.7 RBC 6.04 H Hgb 13.0 L Hct 42.3 MCV 70.0 L MCH 21.5 L MCHC 30.7 RDW 18.2 H Plt Count 239 Neut % (Auto) 69.6 Lymph % (Auto) 20.7 L [place] % (Auto) 5.6 Eos % (Auto) 3.4 Baso % (Auto) 0.7 Neut # (Auto) 5400 Lymph # (Auto) 1600 [place] # (Auto) 400 Eos # (Auto) 300 Baso # (Auto) 100 Sodium 139 Potassium 3.9 Chloride 105 Carbon Dioxide 28 BUN 36 H Creatinine 1.91 H Estimated GFR 39 L BUN/Creatinine Ratio 18.8 Glucose 93 Hemoglobin A1c 6.0 Calcium 8.7 Magnesium 2.2 Total Bilirubin 0.6 AST 23 ALT 19 Alkaline Phosphatase 66 Troponin I < 0.012 Total Protein 7.2 Albumin 3.9 Globulin 3.3 Albumin/Globulin Ratio 1.2 [facility] Medical History (Updated 05/03/24 @ 14:37 by Muriel Dosdon MD) Obstructive airway disease HLD (hyperlipidemia) HTN (hypertension) Coronary artery disease Healthy adult Surgical History No pertinent past surgical history Social History household members: spouse and children Smoking Status: Never smoker alcohol intake: current Assessment & Plan Assessment & Plan narrative: 1. Acute respiratory failure with hypoxia, secondary to acute on chronic heart failure of unknown type - continue diuresis with furosemide 40 mg IV BID. Net negative 4L thus far 1st 24 hours with improvement in creatinine. Continue to follow. - wean O2 as tolerated, Goal O2 88-96% on room air with hx of obstructive lung disease. - checked 2nd troponin to rule out an atypical ACS presentation which was negative., which was 55-60% with no wall motion abnormalities and grade I diastolic dysfunction. - echocardiogram ordered to assess EF - RT evaluation and treatment ordered - per cardiology notes from OSH, was to start metoprolol instead of atenolol, will change here to metoprolol. ER called an no transfer recommended at this time, continue medical management only. Monitor closely for signs of ongoing ischemia with known 70% lesion that cath report states is likely to need intervention at some point. - patient was given antibiotics in the ER, low concern for pneumonia at this time. Normal WBC count, no fevers or chills or no change in cough. 2. chronic obstructive lung disease without exacerbation. - chronic, no wheezing, presentation more consistent with heart failure - continue home medications, replacing inhalers for formulary nebulizers. - no change in cough or sputum production, no evidence of exacerbation. 3. CRYSTAL on CKD (unknown baseline) - likely due to volume overload, but monitor closely in setting of diuresis above. - reported baseline Cr around 1.8, dose medications appropriately for renal function. 4. HTN - continue home metoprolol 5. CAD - continue beta marko, imdur, asa and statin therapy. 6. DM2 - hold metformin - low dose sliding scale and fingersticks ACHS. - A1c ordered for tomorrow. Code: Full, surrogate is patient's spouse DVT: Lovenox daily Dispo: Inpatient status. Likely discharge home after resolution of hypoxia, possibly 2-3 more days. Time-Based Coding :: [TOTAL MINUTES] spent with patient and on the chart (including review of chart, obtaining history, exam, reviewing outside data, placing orders, documenting exam and treatment plan, and counseling patient) on [DATE]. Quality VTE Deep Vein Thrombosis/Pulmonary Embolism Present on Admission: No
[2024-05-04] MEDS: ATORVASTATIN 20 MG TABLET 10 MG PO (20:14)
[2024-05-04] MEDS: SODIUM CHLORIDE 0.9% FLUSH 10 ML IV (21:58)
[2024-05-05] VITALS (11 sets, daily range): BP systolic 121–139; BP diastolic 63–85; PULSE 63–74; RESP 16–18; TEMP 36.2–36.9; O2SAT 92–97
--- NOTE | 2024-05-05 06:55 | PC.NURSE ---
Patient resting in bed most of the night. Up to the bathroom to void a couple of times. Pt denied any chest discomfort or sob. Pt has been A&O, calm and cooperative.
--- NOTE | 2024-05-05 07:37 | PM.DS.1 ---
History of Present Illness History of Present Illness Chief complaint: per pt low oxygen Narrative: 63 M with PMH of CAD (70% LAD from 02/26 [facility]), HTN, HLD, possible obstructive lung disease (see pulmonary notes), gout, DM who presents with worsening shortness of breath. This was severe starting last night. He also has LE edema worsening over the past week. He also continues to have substernal chest pressure with ambulation despite medical therapy. Previous notes from cardiology state that patient will likely need stenting at some point given his 70% LAD lesion and he was attempted on imdur and metoprolol therapy. He denies fever, chills. No real change in his cough recently (has been chronic since his reported dx of pneumonia many months ago). Given clinical scenario, recommended transfer to center with cardiology (and possibly nephrology given his CRYSTAL as well) at this time for further evaluation for presumed heart failure, likely ischemic, with possible need for LHC. However patient's cardiology group via [facility] recommended continued medical therapy only, no interventions or transfer needed. He was admitted here for presumed heart failure exacerbation with plan for diuresis. Discharge Providers Provider Date of admission: 05/03/24 14:20 Primary care physician: Gina Thakur PA-C Discharge provider: Mukesh Munoz MD Summary Hospital Course Hospital Course: 1. Acute respiratory failure with hypoxia, secondary to acute on chronic heart failure of unknown type - continue diuresis with furosemide 40 mg IV BID. Net negative 4L thus far 1st 24 hours with improvement in creatinine. Continue to follow. - wean O2 as tolerated, Goal O2 88-96% on room air with hx of obstructive lung disease. - checked 2nd troponin to rule out an atypical ACS presentation which was negative., which was 55-60% with no wall motion abnormalities and grade I diastolic dysfunction. - echocardiogram ordered to assess EF - RT evaluation and treatment ordered - per cardiology notes from OSH, was to start metoprolol instead of atenolol, will change here to metoprolol. ER called an no transfer recommended at this time, continue medical management only. Monitor closely for signs of ongoing ischemia with known 70% lesion that cath report states is likely to need intervention at some point. - patient was given antibiotics in the ER, low concern for pneumonia at this time. Normal WBC count, no fevers or chills or no change in cough. 2. chronic obstructive lung disease without exacerbation. - chronic, no wheezing, presentation more consistent with heart failure - continue home medications, replacing inhalers for formulary nebulizers. - no change in cough or sputum production, no evidence of exacerbation. 3. CRYSTAL on CKD (unknown baseline) - likely due to volume overload, but monitor closely in setting of diuresis above. - reported baseline Cr around 1.8, dose medications appropriately for renal function. 4. HTN - continue home metoprolol 5. CAD - continue beta marko, imdur, asa and statin therapy. 6. DM2 - hold metformin - low dose sliding scale and fingersticks ACHS. - A1c ordered for tomorrow. Exam Vital Signs (past 8 hours): - 05/05/24 00:00 05/05/24 06:05 Temperature 97.1 F L 97.2 F L Pulse Rate 68 64 Respiratory Rate 18 18 Blood Pressure 138/85 132/76 Pulse Oximetry 92 94 Oxygen Flow Rate 3 Fraction of Inspired Oxygen 36 SaO2/FiO2 Ratio 255 Oxygen Delivery Method Nasal Cannula Oxygen Flow Rate 3 Objective Labs 05/04/24 06:20 05/04/24 06:20 [facility] Medical History (Updated 05/03/24 @ 14:37 by Muriel Dodson MD) Obstructive airway disease HLD (hyperlipidemia) HTN (hypertension) Coronary artery disease Healthy adult Surgical History No pertinent past surgical history Social History household members: spouse and children Smoking Status: Never smoker alcohol intake: current Discharge Plan Discharge orders & Medications Prescriptions: No Action fluticasone propion-salmeterol 250-50 mcg/dose blister with device 1 inh inhalation BID Qty: 60 0RF Rx Instructions: rinse mouth with water, gargle and spit after each use aspirin 81 mg tablet,delayed release (DR/EC) 81 mg PO DAILY isosorbide mononitrate 120 mg tablet extended release 24 hr 120 mg PO DAILY simvastatin 20 mg tablet 20 mg PO DAILY metformin 1,000 mg tablet 1,000 mg PO BIDWMEAL allopurinol 300 mg tablet 300 mg PO DAILY tamsulosin 0.4 mg capsule 0.4 mg PO DAILY amlodipine 10 mg tablet 10 mg PO DAILY atenolol 50 mg tablet 50 mg PO DAILY losartan 100 mg tablet 100 mg PO DAILY albuterol sulfate 90 mcg/actuation aerosol powdr breath activated 2 inh inhalation Q4H PRN (Reason: SOB) Follow up/Referrals: Gina Thakur PA-C [Primary Care Provider] - Visit Report/Discharge Packet Instructions: DI for Heart Failure, DI for Respiratory Failure, Heart Failure: When to Call for Help, Heart Failure: Salt and Fluids Discharge Data Primary Care Provider: Gina Thakur Quality VTE Deep Vein Thrombosis/Pulmonary Embolism Present on Admission: No
[2024-05-05] MEDS: SODIUM CHLORIDE 0.9% FLUSH 10 ML IV ×2 (09:00→21:00)
[2024-05-05] MEDS: FUROSEMIDE 40 MG/4 ML VIAL IV ×2 (09:12→20:09)
[2024-05-05] MEDS: ENOXAPARIN 30 MG/0.3 ML SYRINGE SUBCUT (09:12)
[2024-05-05] MEDS: LOSARTAN 50 MG TABLET 100 MG PO (09:13)
[2024-05-05] MEDS: TAMSULOSIN 0.4 MG CAPSULE PO (09:13)
[2024-05-05] MEDS: ASPIRIN EC 81 MG TABLET PO (09:13)
[2024-05-05] MEDS: ISOSORBIDE MONONITRATE ER 30 MG TABLET 120 MG PO (09:13)
[2024-05-05] MEDS: METOPROLOL ER 50 MG TABLET PO ×2 (09:13→20:09)
[2024-05-05] MEDS: allopurinoL 100 MG TABLET 200 MG PO (09:14)
[2024-05-05] MEDS: AMLODIPINE 5 MG TABLET 10 MG PO (09:14)
[2024-05-05] MEDS: ALBUTEROL 2.5 MG/3 ML NEB (ADULT) INH ×3 (09:38→16:36)
[2024-05-05] MEDS: BUDESONIDE 0.5 MG/2 ML NEB INH ×2 (09:38→16:37)
[2024-05-05 10:51] LABS: Add Manual Diff / Slide Review NO; Basophils Absolute Auto 100 /uL (0-100); Basophils Percent Auto 0.7 % (0-2); Eosinophils Absolute Auto 500 /uL (0-450); Eosinophils Percent Auto 5.7 % (2-4); Hematocrit 43.5 % (41-53); Hemoglobin 13.4 g/dL (13.5-17.5); Lymphocytes Absolute Auto 1200 /uL (1100-4500); Lymphocytes Percent Auto 14.2 % (25-40); Mean Corpuscular HGB Conc 30.8 % (30-36); Mean Corpuscular Hemoglobin 21.5 PG (26-34); Monocytes Absolute Auto 600 /uL (0-900); Monocytes Percent Auto 7.4 % (3-14); Neutrophils Absolute Auto 6000 /uL (1500-7000); Platelet Count 252 X10^3/uL (150-400); Red Blood Cell Count 6.23 X10^6/uL (4.5-5.9); Red Cell Distribution Width 17.8 % (11.6-14.8); White Blood Cell Count 8.4 X10^3/uL (4.5-11.0)
--- NOTE | 2024-05-05 11:12 | PM.PN.1 ---
Subjective Subjective Interval history: His breathing continues to improve. He is now down to 2.5 L nasal cannula for maintenance. At home, at baseline he is not on oxygen. The creatinine is 2.22 and the CBC was normal 2 days ago. Exam Vital Signs (past 8 hours): - 05/05/24 06:05 05/05/24 09:03 05/05/24 09:38 Temperature 97.2 F L 97.4 F L Pulse Rate 64 63 71 Respiratory Rate 18 16 Blood Pressure 132/76 139/78 Pulse Oximetry 94 94 95 Oxygen Delivery Method Nasal Cannula Oxygen Flow Rate 3 2.5 Fraction of Inspired Oxygen 36 SaO2/FiO2 Ratio 255 Oxygen Delivery Method Nasal Cannula Oxygen Flow Rate 2.5 Narrative Exam Narrative: Alert, oriented x3, somewhat tangential. No apparent distress. Heart is regular rate and rhythm without murmur. Lungs are clear to auscultation bilaterally. Extremities have no ankle edema. Objective Labs 05/05/24 05:00 05/04/24 06:20 Labs: Laboratory Results - last 24 hr 05/05/24 05:00 WBC 8.4 RBC 6.23 H Hgb 13.4 L Hct 43.5 MCV 70.0 L MCH 21.5 L MCHC 30.8 RDW 17.8 H Plt Count 252 Neut % (Auto) 72.0 Lymph % (Auto) 14.2 L [place] % (Auto) 7.4 Eos % (Auto) 5.7 H Baso % (Auto) 0.7 Neut # (Auto) 6000 Lymph # (Auto) 1200 [place] # (Auto) 600 Eos # (Auto) 500 H Baso # (Auto) 100 PFSH Medical History (Updated 05/03/24 @ 14:37 by Muriel Dodson MD) Obstructive airway disease HLD (hyperlipidemia) HTN (hypertension) Coronary artery disease Healthy adult Surgical History No pertinent past surgical history Social History household members: spouse and children Smoking Status: Never smoker alcohol intake: current Assessment & Plan Assessment & Plan narrative: 1. Acute respiratory failure with hypoxia, secondary to acute on chronic heart failure of unknown type - continue diuresis with furosemide 40 mg IV BID. Net negative 4L. Continue to follow. - wean O2 as tolerated, Goal O2 88-96% on room air with hx of obstructive lung disease. - checked 2nd troponin to rule out an atypical ACS presentation which was negative. - echocardiogram ordered to assess EF which was 55-60% with no wall motion abnormalities and grade I diastolic dysfunction. - RT evaluation and treatment ordered - per cardiology notes from OSH, was to start metoprolol instead of atenolol, will change here to metoprolol. ER called an no transfer recommended at this time, continue medical management only. Monitor closely for signs of ongoing ischemia with known 70% lesion that cath report states is likely to need intervention at some point. - patient was given antibiotics in the ER, low concern for pneumonia at this time. Normal WBC count, no fevers or chills or no change in cough. 2. chronic obstructive lung disease without exacerbation. - chronic, no wheezing, presentation more consistent with heart failure - continue home medications, replacing inhalers for formulary nebulizers. - no change in cough or sputum production, no evidence of exacerbation. 3. CRYSTAL on CKD (unknown baseline) - likely due to volume overload, but monitor closely in setting of diuresis above. - reported baseline Cr around 1.8, dose medications appropriately for renal function. 4. HTN - continue home metoprolol 5. CAD - continue beta marko, imdur, asa and statin therapy. 6. DM2 - hold metformin - low dose sliding scale and fingersticks ACHS. - A1c pending. Time-Based Coding :: [TOTAL MINUTES] spent with patient and on the chart (including review of chart, obtaining history, exam, reviewing outside data, placing orders, documenting exam and treatment plan, and counseling patient) on [DATE]. Quality VTE Deep Vein Thrombosis/Pulmonary Embolism Present on Admission: No
[2024-05-05 11:14] LABS: Alanine Aminotransferase 27 IU/L (<50); Albumin Globulin Ratio 1.3 (1.0-2.8); Alkaline Phosphatase 66 U/L (38-126); Aspartate Aminotransferase 57 IU/L (17-59); BUN Creatinine Ratio 19.4 (6-22); Bilirubin Total 0.4 mg/dL (0.2-1.3); Blood Urea Nitrogen 38 mg/dL (9-20); Calcium 8.9 mg/dL (8.4-10.2); Carbon Dioxide 24 mmol/L (22-32); Chloride 103 mmol/L (98-107); Estimated Glomerular Filt Rate 38 mL/min (>60); Glucose 212 mg/dL (80-110); HEMOLYSIS 23 (0-50); Magnesium 2.4 mg/dL (1.6-2.3); Sodium 138 mmol/L (137-145)
[2024-05-05] MEDS: INSULIN LISPRO 100 UNIT/ML 3ML VIAL SUBCUT (17:04)
[2024-05-05] MEDS: ATORVASTATIN 20 MG TABLET 10 MG PO (20:10)
[2024-05-06] VITALS: BP 146/76; PULSE 67; RESP 18; TEMP 36.1; O2SAT 93
[2024-05-06 03:57] VITALS: BP 134/84; PULSE 18; RESP 18; TEMP 36.1; O2SAT 92
[2024-05-06 06:03] LABS: Alanine Aminotransferase 27 IU/L (<50); Albumin 3.8 g/dL (3.5-5.0); Albumin Globulin Ratio 1.1 (1.0-2.8); Alkaline Phosphatase 72 U/L (38-126); Aspartate Aminotransferase 32 IU/L (17-59); BUN Creatinine Ratio 22.8 (6-22); Bilirubin Total 0.4 mg/dL (0.2-1.3); Blood Urea Nitrogen 44 mg/dL (9-20); Calcium 8.3 mg/dL (8.4-10.2); Carbon Dioxide 26 mmol/L (22-32); Chloride 102 mmol/L (98-107); Estimated Glomerular Filt Rate 38 mL/min (>60); Globulin 3.4 g/dL (1.7-4.1); Glucose 111 mg/dL (80-110); HEMOLYSIS < 15 (0-50); Magnesium 2.4 mg/dL (1.6-2.3); Potassium 3.7 mmol/L (3.4-5.1); Sodium 136 mmol/L (137-145); Total Protein 7.2 g/dL (6.3-8.2)
[2024-05-06 06:21] LABS: Add Manual Diff / Slide Review NO; Basophils Absolute Auto 0 /uL (0-100); Basophils Percent Auto 0.5 % (0-2); Eosinophils Absolute Auto 500 /uL (0-450); Eosinophils Percent Auto 6.1 % (2-4); Hemoglobin 13.3 g/dL (13.5-17.5); Lymphocytes Absolute Auto 1500 /uL (1100-4500); Lymphocytes Percent Auto 18.9 % (25-40); Mean Corpuscular Hemoglobin 21.7 PG (26-34); Mean Corpuscular Volume 69.9 fL (80-100); Monocytes Absolute Auto 700 /uL (0-900); Monocytes Percent Auto 8.1 % (3-14); Neutrophils Absolute Auto 5400 /uL (1500-7000); Neutrophils Percent Auto 66.4 % (50-75); Platelet Count 260 X10^3/uL (150-400); Red Blood Cell Count 6.16 X10^6/uL (4.5-5.9); Red Cell Distribution Width 17.6 % (11.6-14.8); White Blood Cell Count 8.1 X10^3/uL (4.5-11.0)
[2024-05-06 06:56] LABS: Hypochromasia 1+; Microcytosis 1+
[2024-05-06 07:00] VITALS: BP 127/63; PULSE 66; RESP 18; TEMP 36.6; O2SAT 97
--- NOTE | 2024-05-06 07:53 | PM.DS.1 ---
History of Present Illness History of Present Illness Date Patient Seen: 05/06/24 Chief complaint: per pt low oxygen Narrative: He says that he feels much stronger and is breathing well. He is hoping he can return to work as soon as possible. He has 2 part-time jobs and they are asking him if he will be working as soon as tomorrow. Respiratory therapy did a walk test with him. His saturation dropped to 87% on room air with ambulation and beck to 92% on 1 L nasal cannula while walking. His home oxygen has been arranged to be delivered today. His creatinine remains quite high so the metformin will be stopped and he will be changed from atenolol to metoprolol. 63 M with PMH of CAD (70% LAD from 02/26 [facility]), HTN, HLD, possible obstructive lung disease (see pulmonary notes), gout, DM who presents with worsening shortness of breath. This was severe starting last night. He also has LE edema worsening over the past week. He also continues to have substernal chest pressure with ambulation despite medical therapy. Previous notes from cardiology state that patient will likely need stenting at some point given his 70% LAD lesion and he was attempted on imdur and metoprolol therapy. He denies fever, chills. No real change in his cough recently (has been chronic since his reported dx of pneumonia many months ago). Given clinical scenario, recommended transfer to center with cardiology (and possibly nephrology given his CRYSTAL as well) at this time for further evaluation for presumed heart failure, likely ischemic, with possible need for LHC. However patient's cardiology group via [facility] recommended continued medical therapy only, no interventions or transfer needed. He was admitted here for presumed heart failure exacerbation with plan for diuresis. Discharge Providers Provider Date of admission: 05/03/24 14:20 Discharge Date: 05/06/24 Primary care physician: Gina Thakur PA-C Discharge provider: Mukesh Munoz MD Summary Hospital Course Hospital Course: 1. Acute respiratory failure with hypoxia, secondary to acute on chronic heart failure of unknown type - Diuresed with furosemide 40 mg IV BID. Net negative 4L. Continue Lasix 40 mg PO BID at home. - wean O2 at home, currently 87% on RA with ambulation, Goal O2 88-96% on room air with hx of obstructive lung disease. - checked 2nd troponin to rule out an atypical ACS presentation which was negative. - echocardiogram ordered to assess EF which was 55-60% with no wall motion abnormalities and grade I diastolic dysfunction. - per cardiology notes was to start metoprolol instead of atenolol, will change here to metoprolol. - ischemia with known 70% lesion that cath report states is likely to need intervention at some point. - patient was given antibiotics in the ER, low concern for pneumonia at this time. Normal WBC count, no fevers or chills or no change in cough. 2. chronic obstructive lung disease without exacerbation. - chronic, no wheezing, presentation more consistent with heart failure - continue home medications, replacing inhalers for formulary nebulizers. - no change in cough or sputum production, no evidence of exacerbation. 3. CRYSTAL on CKD (unknown baseline) - likely due to volume overload, but monitor closely in setting of diuresis above. - reported baseline Cr around 1.8, dose medications appropriately for renal function. - Metformin stopped 4. HTN - continue home metoprolol 5. CAD - continue beta marko, imdur, asa and statin therapy. 6. DM2 - Stop metformin due to high Creatinine - low dose sliding scale and fingersticks ACHS. - A1c still not back at time of discharge. - Follow up for next med treatment choice with PCP soon. 7. BRADLEY - Continue Home CPAP Status at Discharge Cognitive/behavioral status at discharge: oriented Functional status at discharge: independent ambulation Overall status at discharge: patient is back to baseline Exam Vital Signs (past 8 hours): - 05/06/24 00:00 05/06/24 03:57 Temperature 96.9 F L 97.0 F L Pulse Rate 67 18 L Respiratory Rate 18 18 Blood Pressure 146/76 H 134/84 Pulse Oximetry 93 92 Oxygen Flow Rate 2 2 Fraction of Inspired Oxygen 36 SaO2/FiO2 Ratio 255 Oxygen Delivery Method Nasal Cannula Oxygen Flow Rate 2 Narrative Exam Narrative: Alert and oriented x3. No apparent distress. Heart is regular rate and rhythm without murmur Lungs are clear to auscultation bilaterally Extremities have no ankle edema. Objective Labs 05/06/24 05:05 05/06/24 05:05 Labs: Laboratory Results - last 24 hr 05/05/24 05/05/24 05/06/24 05:00 10:30 05:05 WBC 8.4 8.1 RBC 6.23 H 6.16 H Hgb 13.4 L 13.3 L Hct 43.5 43.0 MCV 70.0 L 69.9 L MCH 21.5 L 21.7 L MCHC 30.8 31.0 RDW 17.8 H 17.6 H Plt Count 252 260 Neut % (Auto) 72.0 66.4 Lymph % (Auto) 14.2 L 18.9 L [place] % (Auto) 7.4 8.1 Eos % (Auto) 5.7 H 6.1 H Baso % (Auto) 0.7 0.5 Neut # (Auto) 6000 5400 Lymph # (Auto) 1200 1500 [place] # (Auto) 600 700 Eos # (Auto) 500 H 500 H Baso # (Auto) 100 0 RBC Morphology See below Hypochromasia 1+ H Microcytosis 1+ H Sodium 138 136 L Potassium 4.0 3.7 Chloride 103 102 Carbon Dioxide 24 26 BUN 38 H 44 H Creatinine 1.96 H 1.93 H Estimated GFR 38 L 38 L BUN/Creatinine Ratio 19.4 22.8 H Glucose 212 H D 111 H D Calcium 8.9 8.3 L Magnesium 2.4 H 2.4 H Total Bilirubin 0.4 0.4 AST 57 32 ALT 27 27 Alkaline Phosphatase 66 72 Total Protein 7.0 7.2 Albumin 4.0 3.8 Globulin 3.0 3.4 Albumin/Globulin Ratio 1.3 1.1 [facility] Medical History (Updated 05/03/24 @ 14:37 by Muriel Dodson MD) Obstructive airway disease HLD (hyperlipidemia) HTN (hypertension) Coronary artery disease Healthy adult Surgical History No pertinent past surgical history Social History household members: spouse and children Smoking Status: Never smoker alcohol intake: current Discharge Plan Discharge Plan Patient Disposition: Home Provider Discharge Comment: Needs to continue on Home Oxygen 1-2 L NC for one week. No work for one week. Do a BMP blood test with your doctor in one week Discharge orders & Medications Prescriptions: New metoprolol succinate 50 mg Tablet Extended Release 24 Hr 50 mg PO BID Qty: 60 0RF furosemide [Lasix] 40 mg tablet 40 mg PO BID Qty: 60 0RF Continued fluticasone propion-salmeterol 250-50 mcg/dose blister with device 1 inh inhalation BID Qty: 60 0RF Rx Instructions: rinse mouth with water, gargle and spit after each use aspirin 81 mg tablet,delayed release (DR/EC) 81 mg PO DAILY isosorbide mononitrate 120 mg tablet extended release 24 hr 120 mg PO DAILY simvastatin 20 mg tablet 20 mg PO DAILY allopurinol 300 mg tablet 300 mg PO DAILY tamsulosin 0.4 mg capsule 0.4 mg PO DAILY amlodipine 10 mg tablet 10 mg PO DAILY losartan 100 mg tablet 100 mg PO DAILY albuterol sulfate 90 mcg/actuation aerosol powdr breath activated 2 inh inhalation Q4H PRN (Reason: SOB) Discontinued metformin 1,000 mg tablet 1,000 mg PO BIDWMEAL atenolol 50 mg tablet 50 mg PO DAILY Follow up/Referrals: Gina Thakur PA-C [Primary Care Provider] - Visit Report/Discharge Packet Instructions: DI for Heart Failure, DI for Respiratory Failure, Heart Failure: When to Call for Help, Heart Failure: Salt and Fluids Stand Alone Forms: Patient Portal/API, Stroke Signs & Symptoms Discharge Data Primary Care Provider: Gina Thakur Quality VTE Deep Vein Thrombosis/Pulmonary Embolism Present on Admission: No
[2024-05-06] MEDS: ALBUTEROL 2.5 MG/3 ML NEB (ADULT) INH (08:05)
[2024-05-06] MEDS: BUDESONIDE 0.5 MG/2 ML NEB INH (08:06)
[2024-05-06 08:10] VITALS: PULSE 64; RESP 18; O2SAT 92
[2024-05-06 08:25] VITALS: BP 134/84; PULSE 64
[2024-05-06] MEDS: LOSARTAN 50 MG TABLET 100 MG PO (08:25)
[2024-05-06] MEDS: TAMSULOSIN 0.4 MG CAPSULE PO (08:25)
[2024-05-06] MEDS: FUROSEMIDE 40 MG/4 ML VIAL IV (08:25)
[2024-05-06] MEDS: ASPIRIN EC 81 MG TABLET PO (08:25)
[2024-05-06] MEDS: AMLODIPINE 5 MG TABLET 10 MG PO (08:25)
[2024-05-06] MEDS: ISOSORBIDE MONONITRATE ER 30 MG TABLET 120 MG PO (08:25)
[2024-05-06] MEDS: METOPROLOL ER 50 MG TABLET PO (08:25)
[2024-05-06] MEDS: allopurinoL 100 MG TABLET 200 MG PO (08:25)
[2024-05-06] MEDS: SODIUM CHLORIDE 0.9% FLUSH 10 ML IV (08:26)
[2024-05-06] MEDS: ENOXAPARIN 30 MG/0.3 ML SYRINGE SUBCUT (08:31)
[2024-05-06 11:00] VITALS: BP 115/65; PULSE 61; RESP 16; TEMP 36.7; O2SAT 95
--- NOTE | 2024-05-06 14:38 | CM.DPNOTE ---
DC Note Patient discharging home with his family today with new home O2. Back to functional and cognitive baseline. Provided two work notes signed by Dr Munoz, per patient's request (patient has two jobs). Dr Munoz recommending one week off work to help in patient's recovery and for management of new home O2. Patient asks this [employer] if he will qualify for FMLA; unfortunately this is out of this [employer]'s scope. Encouraged patient and spouse to contact HR at patient's place(s) of work. JW
--- NOTE | 2024-05-06 15:26 | PC.NURSE ---
Day shift: Paperwork signed and all questions answered. Encouraged Pt to call his PCP first thing on Tuesday to make a plan for f/u and CHF management. Spouse in room for teachings. Pt has all personal belongings. scripts sent to Pt's pharmacy electronic. Went home with home O2 and was instructed on how to use the O2.
== END 2024-05-06 15:30 | disposition home or self-care (01) | DRG 291 ==
LOC: ED 13:02 → AC 14:37
PROVIDERS: Admitting Provider Internal Medicine; Emergency Provider Emergency Medicine; PCP Physician Assistant; Referring Provider Emergency Medicine; Visit Provider Internal Medicine
DX: I13.0 Hypertensive heart and chronic kidney disease with heart failure and stage 1 through stage 4 chronic kidney disease, or unspecified chronic kidney disease (principal); I50.33 Acute on chronic diastolic (congestive) heart failure; J96.01 Acute respiratory failure with hypoxia; N17.9 Acute kidney failure, unspecified; E11.22 Type 2 diabetes mellitus with diabetic chronic kidney disease; N18.9 Chronic kidney disease, unspecified; J44.9 Chronic obstructive pulmonary disease, unspecified; I25.10 Atherosclerotic heart disease of native coronary artery without angina pectoris; G47.33 Obstructive sleep apnea (adult) (pediatric); E78.5 Hyperlipidemia, unspecified; M10.9 Gout, unspecified; Z79.84 Long term (current) use of oral hypoglycemic drugs
CPT/HCPCS: 36415; 71045; 80053; 82550; 82962; 83036; 83735; 83880; 84484; 85025; 85610; 87040; 87633; 93005; 93306; 94618; 94640; 94762; 96365; 96367; 96375; 99285; J0696; J1650; J1815; J1940; J7613